=== PATIENT | male | born 1940 | race Caucasian/White ===

== ENCOUNTER 2017-06-20 08:38 | Emergency (ER) | payer MEDICARE, OTHER | END 2017-06-20 09:07 | disposition home or self-care (01) | LOC: E/R 08:38 | DX: F10.920 Alcohol use, unspecified with intoxication, uncomplicated (principal); Z87.891 Personal history of nicotine dependence | CPT/HCPCS: 99282 ==

== ENCOUNTER 2017-06-21 05:59 | Inpatient (IN) | payer MEDICARE, OTHER ==
[2017-06-21] MEDS: SOD CHLORIDE 0.9% 1,000 ML IV (06:14)
[2017-06-21] MEDS: DIAZEPAM 5 MG/ML SYG IV (07:36)
[2017-06-21] MEDS ORDERED: DEXTROSE 50% 50 ML SYRINGE (07:50)
[2017-06-21] MEDS: DEXTROSE 50% 50 ML SYRINGE IV (07:52)
[2017-06-21 07:58] LABS: ADD MAN DIFF? NO
[2017-06-21 08:02] LABS: BASOPHIL # 0.1 10^3/ul (0.0-0.1); BASOPHILS % 0.7 % (0.0-2.0); HEMATOCRIT 40.1 % (42.0-52.0); HEMOGLOBIN 13.2 g/dl (14.0-18.0); LYMPHOCYTES # 1.2 10^3/ul (0.8-2.9); LYMPHOCYTES % 14.5 % (15.0-51.0); MEAN CORPUSCULAR HEMOGLOBIN 31.3 pg (29.0-33.0); MEAN CORPUSCULAR HGB CONC 32.9 g/dl (32.0-37.0); MEAN PLATELET VOLUME 10.4 fl (7.4-10.4); MONOCYTE # 0.4 10^3/ul (0.3-0.9); MONOCYTES % 4.6 % (0.0-11.0); NEUTROPHIL # 6.5 10^3/ul (1.6-7.5); NEUTROPHILS % 79.7 % (39.0-77.0); PLATELET COUNT 164 10^3/UL (140-415); RED BLOOD COUNT 4.22 10^6/ul (4.70-6.10)
[2017-06-21 08:02] LABS: WHITE BLOOD COUNT 8.2 10^3/ul (4.8-10.8)
[2017-06-21 08:26] LABS: ALANINE AMINOTRANSFERASE 67 IU/L (13-69); ALBUMIN 4.5 g/dl (3.3-4.9); ALBUMIN/GLOBULIN RATIO 1.28; ALKALINE PHOSPHATASE 89 IU/L (42-121); ANION GAP 28 (8-16); ASPARTATE AMINO TRANSFERASE 91 IU/L (15-46); BLOOD UREA NITROGEN 28 mg/dl (7-20); CALCIUM 9.4 mg/dl (8.4-10.2); CARBON DIOXIDE 19 mmol/L (21-31); CHLORIDE 106 mmol/L (97-110); CREATININE 1.11 mg/dl (0.61-1.24); GLUCOSE 61 mg/dl (70-220); POTASSIUM 4.5 mmol/L (3.5-5.1); SODIUM 148 mmol/L (135-144)
[2017-06-21 08:28] LABS: ACETAMINOPHEN < 10.0 ug/ml (10.0-30.0); SALICYLATE < 1.0 mg/dl (5.0-30.0)
[2017-06-21] MEDS ORDERED: ACETAMINOPHEN 325 MG TAB PO (10:00)
[2017-06-21] MEDS ORDERED: ONDANSETRON 4 MG INJ IV ×2 (10:00→11:00)
[2017-06-21] MEDS: DEXTROSE 5%-0.9% NACL 1,000 ML IV (10:20)
[2017-06-21] MEDS: FAMOTIDINE 20 MG INJ IV ×2 (11:00→20:21)
[2017-06-21] MEDS: DEXTROSE 5%-0.45% NACL 1,000 ML IV ×2 (11:17→18:47)
[2017-06-21] MEDS: CHLORDIAZEPOXIDE 25 MG CAP PO ×2 (12:26→20:21)
[2017-06-21 13:27] LABS: AMMONIA 20 umol/l (9-30)
[2017-06-21] MEDS: DOCUSATE SODIUM 100 MG CAP PO (20:21)
[2017-06-21] MEDS: HYDROCODONE/APAP (5/325) TAB PO (20:31)
[2017-06-22] MEDS: DEXTROSE 5%-0.45% NACL 1,000 ML IV ×3 (02:40→19:00)
[2017-06-22] MEDS: HYDROCODONE/APAP (5/325) TAB PO (04:46)
[2017-06-22 08:43] LABS: ADD MAN DIFF? NO
[2017-06-22] MEDS: FAMOTIDINE 20 MG TAB PO ×2 (09:03→20:13)
[2017-06-22] MEDS: CHLORDIAZEPOXIDE 25 MG CAP PO ×3 (09:03→20:13)
[2017-06-22] MEDS: DOCUSATE SODIUM 100 MG CAP PO ×2 (09:03→20:13)
[2017-06-22 09:11] LABS: ALANINE AMINOTRANSFERASE 52 IU/L (13-69); ALBUMIN 3.2 g/dl (3.3-4.9); ALBUMIN/GLOBULIN RATIO 1.03; ALKALINE PHOSPHATASE 60 IU/L (42-121); ANION GAP 14 (8-16); ASPARTATE AMINO TRANSFERASE 70 IU/L (15-46); BILIRUBIN,INDIRECT 0.6 mg/dl (0-1.1); BILIRUBIN,TOTAL 0.6 mg/dl (0.2-1.3); BLOOD UREA NITROGEN 22 mg/dl (7-20); CALCIUM 8.4 mg/dl (8.4-10.2); CARBON DIOXIDE 26 mmol/L (21-31); CHLORIDE 108 mmol/L (97-110); CHOL/HDL RATIO 3.1 RATIO; CHOLESTEROL 169 mg/dl (100-200); CREATININE 0.89 mg/dl (0.61-1.24); GLUCOSE 147 mg/dl (70-220); HDL CHOLESTEROL 54 mg/dl (31-75); LDL CHOLESTEROL,CALCULATED 99 mg/dl; PHOSPHORUS 1.9 mg/dl (2.5-4.9); POTASSIUM 3.6 mmol/L (3.5-5.1); SODIUM 144 mmol/L (135-144); TOTAL PROTEIN 6.3 g/dl (6.1-8.1); TRIGLYCERIDES 82 mg/dl (0-149)
[2017-06-22] MEDS: MULTIVITAMINS 10 ML, THIAMINE 100 MG, FOLIC ACID 1 MG in SOD CHLORIDE 0.9% 1,000 ML IVPB (09:24)
[2017-06-22 09:32] LABS: BASOPHILS % 0.4 % (0.0-2.0); EOSINOPHILS # 0.1 10^3/ul (0.0-0.5); EOSINOPHILS % 0.6 % (0.0-7.0); HEMATOCRIT 35.5 % (42.0-52.0); LYMPHOCYTES # 2.6 10^3/ul (0.8-2.9); LYMPHOCYTES % 26.8 % (15.0-51.0); MEAN CORPUSCULAR HEMOGLOBIN 31.5 pg (29.0-33.0); MEAN CORPUSCULAR HGB CONC 33.8 g/dl (32.0-37.0); MEAN CORPUSCULAR VOLUME 93.2 fl (82.0-101.0); MEAN PLATELET VOLUME 11.4 fl (7.4-10.4); MONOCYTE # 1.1 10^3/ul (0.3-0.9); MONOCYTES % 11.4 % (0.0-11.0); NEUTROPHIL # 5.8 10^3/ul (1.6-7.5); NEUTROPHILS % 60.5 % (39.0-77.0); PLATELET COUNT 133 10^3/UL (140-415); RED BLOOD COUNT 3.81 10^6/ul (4.70-6.10); RED CELL DISTRIBUTION WIDTH 13.6 % (11.5-14.5)
[2017-06-22 09:32] LABS: WHITE BLOOD COUNT 9.6 10^3/ul (4.8-10.8)
[2017-06-22 09:34] LABS: THYROID STIMULATING HORMONE 0.767 MIU/L (0.465-4.680)
[2017-06-22 10:21] LABS: HEMOGLOBIN A1C 5.9 % (0-5.9)
[2017-06-22] MEDS: OXYCODONE/ACETAMINOPHEN (5/325) TAB PO ×3 (12:10→23:36)
[2017-06-22] MEDS: NEUTRA-PHOS 250 MG PACKET PO (13:25)
[2017-06-22 14:36] LABS: ADD UMIC YES; UR ASCORBIC ACID NEGATIVE (NEGATIVE); UR BACTERIA FEW /HPF (NONE SEEN); UR BILIRUBIN (Dip) NEGATIVE (NEGATIVE); UR BLOOD (Dip) 1+ mg/dL (NEGATIVE); UR CLARITY SLIGHTLY CLOUDY (CLEAR); UR COLOR YELLOW (YELLOW); UR GLUCOSE (Dip) NEGATIVE (NEGATIVE); UR KETONES (Dip) 1+ mg/dL (NEGATIVE); UR LEUKOCYTE ESTERASE (Dip) NEGATIVE Leu/ul (NEGATIVE); UR NITRITE (Dip) NEGATIVE (NEGATIVE); UR RBC 7 /HPF (0-5); UR SPECIFIC GRAVITY (Dip) 1.023 (1.003-1.030); UR TOTAL PROTEIN (Dip) 2+ mg/dl (NEGATIVE); UR UROBILINOGEN (Dip) 1+ mg/dL (NEGATIVE); UR WBC 8 /HPF (0-5)
[2017-06-22 14:56] LABS: AMPHETAMINE/METHAMPHETAMINE Negative (NEGATIVE); BARBITURATES Negative (NEGATIVE); CANNABINOIDS Negative (NEGATIVE); COCAINE Negative (NEGATIVE)
[2017-06-22 14:57] LABS: BENZODIAZEPINES Positive (NEGATIVE)
[2017-06-22 14:58] LABS: OPIATES Positive (NEGATIVE)
[2017-06-22] MEDS: ACETAMINOPHEN 325 MG TAB PO (15:32)
[2017-06-23] MEDS: DEXTROSE 5%-0.45% NACL 1,000 ML IV ×3 (03:00→19:00)
[2017-06-23] MEDS: OXYCODONE/ACETAMINOPHEN (5/325) TAB PO ×5 (04:45→21:07)
[2017-06-23] MEDS: ACETAMINOPHEN 325 MG TAB PO ×2 (06:52→20:04)
[2017-06-23 07:15] LABS: ADD MAN DIFF? NO
[2017-06-23 07:19] LABS: WHITE BLOOD COUNT 9.6 10^3/ul (4.8-10.8)
[2017-06-23 07:19] LABS: BASOPHIL # 0.1 10^3/ul (0.0-0.1); BASOPHILS % 0.6 % (0.0-2.0); EOSINOPHILS # 0.2 10^3/ul (0.0-0.5); EOSINOPHILS % 1.8 % (0.0-7.0); HEMATOCRIT 36.3 % (42.0-52.0); HEMOGLOBIN 12.2 g/dl (14.0-18.0); LYMPHOCYTES # 2.6 10^3/ul (0.8-2.9); LYMPHOCYTES % 26.8 % (15.0-51.0); MEAN CORPUSCULAR HGB CONC 33.6 g/dl (32.0-37.0); MEAN CORPUSCULAR VOLUME 92.1 fl (82.0-101.0); MEAN PLATELET VOLUME 11.1 fl (7.4-10.4); MONOCYTE # 1.1 10^3/ul (0.3-0.9); MONOCYTES % 11.8 % (0.0-11.0); NEUTROPHIL # 5.6 10^3/ul (1.6-7.5); NEUTROPHILS % 58.7 % (39.0-77.0); PLATELET COUNT 129 10^3/UL (140-415); POSITIVE DIFF @See below; RED BLOOD COUNT 3.94 10^6/ul (4.70-6.10); RED CELL DISTRIBUTION WIDTH 13.9 % (11.5-14.5)
[2017-06-23 07:37] LABS: ANION GAP 14 (8-16); BLOOD UREA NITROGEN 16 mg/dl (7-20); CALCIUM 8.8 mg/dl (8.4-10.2); CARBON DIOXIDE 25 mmol/L (21-31); CHLORIDE 110 mmol/L (97-110); CREATININE 0.85 mg/dl (0.61-1.24); GLUCOSE 109 mg/dl (70-220); MAGNESIUM 1.9 mg/dl (1.7-2.5); PHOSPHORUS 2.3 mg/dl (2.5-4.9); POTASSIUM 3.8 mmol/L (3.5-5.1); SODIUM 145 mmol/L (135-144)
[2017-06-23] MEDS: FAMOTIDINE 20 MG TAB PO ×2 (08:52→20:04)
[2017-06-23] MEDS: CHLORDIAZEPOXIDE 25 MG CAP PO (08:52)
[2017-06-23] MEDS: DOCUSATE SODIUM 100 MG CAP PO ×2 (08:52→20:03)
[2017-06-23] MEDS: MULTIVITAMINS 10 ML, THIAMINE 100 MG, FOLIC ACID 1 MG in SOD CHLORIDE 0.9% 1,000 ML IVPB (09:00)
[2017-06-23] MEDS: CHLORDIAZEPOXIDE 5 MG CAP PO ×2 (12:40→20:12)
[2017-06-23] MEDS: NEUTRA-PHOS 250 MG PACKET PO (12:40)
[2017-06-23] MEDS ORDERED: CYCLOBENZAPRINE 10 MG TAB PO (13:00)
[2017-06-23] MEDS: CYCLOBENZAPRINE 10 MG TAB PO ×2 (14:29→20:04)
[2017-06-23] MEDS: ZOLPIDEM 5 MG TAB PO (23:33)
[2017-06-24] MEDS: OXYCODONE/ACETAMINOPHEN (5/325) TAB PO ×5 (01:31→19:46)
[2017-06-24] MEDS: DEXTROSE 5%-0.45% NACL 1,000 ML IV (03:00)
[2017-06-24] MEDS: ACETAMINOPHEN 325 MG TAB PO ×2 (03:38→14:10)
[2017-06-24] MEDS: DOCUSATE SODIUM 100 MG CAP PO ×2 (08:45→21:04)
[2017-06-24] MEDS: CYCLOBENZAPRINE 10 MG TAB PO ×3 (08:46→21:04)
[2017-06-24] MEDS: FAMOTIDINE 20 MG TAB PO ×2 (08:46→21:04)
[2017-06-24] MEDS: CHLORDIAZEPOXIDE 5 MG CAP PO ×3 (08:46→21:04)
[2017-06-24] MEDS: KETOROLAC 15 MG INJ IV (08:53)
[2017-06-24] MEDS: MULTIVITAMINS 10 ML, THIAMINE 100 MG, FOLIC ACID 1 MG in SOD CHLORIDE 0.9% 1,000 ML IVPB (09:58)
[2017-06-24] MEDS: MUPIROCIN 2% 22 GM OINT TOP ×2 (12:00→21:04)
[2017-06-24] MEDS: predniSONE 20 MG TAB PO (13:09)
[2017-06-24 15:24] LABS: ADD MAN DIFF? NO
[2017-06-24 15:26] LABS: BASOPHIL # 0.1 10^3/ul (0.0-0.1); BASOPHILS % 0.7 % (0.0-2.0); EOSINOPHILS # 0.5 10^3/ul (0.0-0.5); EOSINOPHILS % 5.8 % (0.0-7.0); HEMATOCRIT 37.9 % (42.0-52.0); HEMOGLOBIN 12.8 g/dl (14.0-18.0); LYMPHOCYTES # 2.4 10^3/ul (0.8-2.9); LYMPHOCYTES % 29.6 % (15.0-51.0); MEAN CORPUSCULAR HEMOGLOBIN 31.7 pg (29.0-33.0); MEAN CORPUSCULAR HGB CONC 33.8 g/dl (32.0-37.0); MEAN CORPUSCULAR VOLUME 93.8 fl (82.0-101.0); MONOCYTE # 0.8 10^3/ul (0.3-0.9); MONOCYTES % 9.3 % (0.0-11.0); NEUTROPHIL # 4.4 10^3/ul (1.6-7.5); NEUTROPHILS % 54.5 % (39.0-77.0); PLATELET COUNT 121 10^3/UL (140-415); POSITIVE DIFF @See below; RED BLOOD COUNT 4.04 10^6/ul (4.70-6.10); RED CELL DISTRIBUTION WIDTH 13.6 % (11.5-14.5)
[2017-06-24 15:26] LABS: WHITE BLOOD COUNT 8.1 10^3/ul (4.8-10.8)
[2017-06-24 15:48] LABS: ANION GAP 13 (8-16); BLOOD UREA NITROGEN 18 mg/dl (7-20); CALCIUM 8.8 mg/dl (8.4-10.2); CARBON DIOXIDE 26 mmol/L (21-31); CHLORIDE 106 mmol/L (97-110); CREATININE 1.01 mg/dl (0.61-1.24); GLUCOSE 107 mg/dl (70-220); MAGNESIUM 1.9 mg/dl (1.7-2.5); PHOSPHORUS 3.8 mg/dl (2.5-4.9); POTASSIUM 4.4 mmol/L (3.5-5.1); SODIUM 141 mmol/L (135-144)
[2017-06-24] MEDS ORDERED: hydrALAzine 20 MG INJ IV (17:00)
[2017-06-24] MEDS ORDERED: POLYETHYLENE GLYCOL 17 GM PACKET NGT (18:30)
[2017-06-25] MEDS: OXYCODONE/ACETAMINOPHEN (5/325) TAB PO ×4 (06:48→20:35)
[2017-06-25] MEDS: MULTIVITAMINS 10 ML, THIAMINE 100 MG, FOLIC ACID 1 MG in SOD CHLORIDE 0.9% 1,000 ML IVPB (08:01)
[2017-06-25] MEDS: MUPIROCIN 2% 22 GM OINT TOP ×2 (09:55→20:36)
[2017-06-25] MEDS: DOCUSATE SODIUM 100 MG CAP PO ×2 (09:55→20:34)
[2017-06-25] MEDS: FAMOTIDINE 20 MG TAB PO ×2 (09:55→20:34)
[2017-06-25] MEDS: CHLORDIAZEPOXIDE 5 MG CAP PO ×3 (09:56→20:34)
[2017-06-25] MEDS: predniSONE 20 MG TAB PO (09:56)
[2017-06-25] MEDS: CYCLOBENZAPRINE 10 MG TAB PO ×3 (09:56→20:35)
[2017-06-25] MEDS: ACETAMINOPHEN 325 MG TAB PO (18:36)
[2017-06-26] MEDS: OXYCODONE/ACETAMINOPHEN (5/325) TAB PO ×6 (01:38→21:13)
[2017-06-26] MEDS: ACETAMINOPHEN 325 MG TAB PO (06:49)
[2017-06-26] MEDS: CYCLOBENZAPRINE 10 MG TAB PO ×3 (09:06→21:15)
[2017-06-26] MEDS: DOCUSATE SODIUM 100 MG CAP PO ×2 (09:06→21:15)
[2017-06-26] MEDS: THIAMINE 100 MG TAB PO (09:06)
[2017-06-26] MEDS: MULTIVITAMINS THERAPEUTIC TAB PO (09:06)
[2017-06-26] MEDS: CHLORDIAZEPOXIDE 5 MG CAP PO ×2 (09:06→21:13)
[2017-06-26] MEDS: FAMOTIDINE 20 MG TAB PO ×2 (09:07→21:15)
[2017-06-26] MEDS: FOLIC ACID 1 MG TAB PO (09:07)
[2017-06-26] MEDS: predniSONE 20 MG TAB PO (09:07)
[2017-06-26] MEDS: MUPIROCIN 2% 22 GM OINT TOP ×2 (09:10→21:16)
[2017-06-26 10:30] LABS: ANION GAP 17 (8-16); BLOOD UREA NITROGEN 24 mg/dl (7-20); CALCIUM 9.8 mg/dl (8.4-10.2); CARBON DIOXIDE 25 mmol/L (21-31); CHLORIDE 106 mmol/L (97-110); CREATININE 1.08 mg/dl (0.61-1.24); GLUCOSE 97 mg/dl (70-220); MAGNESIUM 1.9 mg/dl (1.7-2.5); PHOSPHORUS 4.4 mg/dl (2.5-4.9); POTASSIUM 4.5 mmol/L (3.5-5.1); SODIUM 143 mmol/L (135-144)
[2017-06-26] MEDS: LIDOCAINE 5% PATCH TD (16:52)
[2017-06-27] MEDS: OXYCODONE/ACETAMINOPHEN (5/325) TAB PO ×5 (01:49→17:49)
[2017-06-27] MEDS: ACETAMINOPHEN 325 MG TAB PO (03:32)
[2017-06-27] MEDS: MUPIROCIN 2% 22 GM OINT TOP (09:00)
[2017-06-27] MEDS: CHLORDIAZEPOXIDE 5 MG CAP PO (09:19)
[2017-06-27] MEDS: DOCUSATE SODIUM 100 MG CAP PO (09:19)
[2017-06-27] MEDS: predniSONE 20 MG TAB PO (09:19)
[2017-06-27] MEDS: THIAMINE 100 MG TAB PO (09:19)
[2017-06-27] MEDS: FAMOTIDINE 20 MG TAB PO (09:20)
[2017-06-27] MEDS: LIDOCAINE 5% PATCH TD (09:21)
[2017-06-27] MEDS: MULTIVITAMINS THERAPEUTIC TAB PO (09:21)
[2017-06-27] MEDS: CYCLOBENZAPRINE 10 MG TAB PO ×2 (09:21→12:24)
[2017-06-27] MEDS: FOLIC ACID 1 MG TAB PO (09:21)
== END 2017-06-27 19:18 | DRG 896 ==
LOC: TEL 06-22 17:25 → PP2 06-26 23:45 → E/R 05:59 → TEL 18:20
DX: F10.231 Alcohol dependence with withdrawal delirium (principal); G93.40 Encephalopathy, unspecified; Y90.6 Blood alcohol level of 120-199 mg/100 ml; E16.2 Hypoglycemia, unspecified; M54.9 Dorsalgia, unspecified; G89.29 Other chronic pain; Z59.0 Homelessness; M48.061 Spinal stenosis, lumbar region without neurogenic claudication
CPT/HCPCS: 36415; 70450; 72131; 80048; 80053; 80061; 80069; 80306; 80307; 81001; 82140; 82962; 83036; 83735; 84100; 84443; 85025; 87081; 93005; 96374; 96375; 97110; 97161; 97530; 99291-25